=== PATIENT | female | born 1945 | race American Indian/Alaskan Native ===

== ENCOUNTER 2016-07-09 07:06 | Outpatient (CLI) | payer MEDICARE ==
--- NOTE | 2016-07-09 08:47 | Mammography Report ---
BILATERAL MAMMOGRAM: FINDINGS: The breasts are almost entirely fat (<25% glandular). No mass, distortion, suspicious calcification, or skin change is seen. There are no significant changes when compared to her prior examination in June 2015. CAD was utilized. IMPRESSION: Negative mammogram. There is no mammographic evidence of malignancy. RECOMMENDATION: Follow-up per ACS guidelines. BI-RADS CATEGORY: 1 = Negative ACR BI-RADS MAMMOGRAPHIC CODES: 0 = Needs additional imaging evaluation; 1 = Negative; 2 = Benign; 3 = Probably benign; 4 = Suspicious; 5 = Malignant; 6 = Known biopsy-proven malignancy COMMENT: 1. Dense breast tissue, i.e., adenosis, fibrocystic changes, etc., may obscure an underlying neoplasm. 2. Approximately 10% of cancers are not detected with mammography. 3. A negative mammography report should not delay biopsy if a clinically suspicious mass is present. COMMENT: Patient follow-up letters are generated in [employer].
== END 2016-07-09 07:07 | disposition home or self-care (01) ==
LOC: MAMMO 07:06
PROVIDERS: ATTEND Family Medicine
DX: Z12.31 Encounter for screening mammogram for malignant neoplasm of breast (principal)
CPT/HCPCS: 77067; G0202

== ENCOUNTER 2017-05-09 20:45 | Emergency (ER) | payer MEDICARE ==
[2017-05-09] MEDS ORDERED: TYLENOL PO ONE (21:35)
[2017-05-09] MEDS ORDERED: TYLENOL ONE (21:36)
--- NOTE | 2017-05-10 01:18 | Emergency Department Report ---
HPI - General Chief Complaint: Upper Respiratory Infection Time Seen by Provider: 05/10/17 00:13 - HPI HPI: Patient reports that she's been having sore throat, fever and chills, nonproductive cough, runny nose and fever since Tuesday which was 05-06-2017. She says she has a history of diabetes hypertension bronchitis and asthma and she takes nebulizer and inhaler. She doesn't report any wheezing but reports that she has coughing and wheezing with bronchitis and asthma flareup. Denies any known exposure to influenza. Generalized body ache is 7 out of 10. She says she was sick before and she got over it and that it started again on Tuesday. Denies any abdominal or back pain. Denies any urinary burning frequency or urgency. Denies any nausea or vomiting. Patient is a primary care physician. Pain is achy and she says she uses [id number] medication with little relief. ED Past Medical Hx - Past Medical History Previous Medical History?: Yes Hx Hypertension: Yes Hx Diabetes: Yes - Surgical History Past Surgical History?: Yes Hx Appendectomy: Yes Additional Surgical History: tubal ligation - Family History Family history: hypertension - Social History Smoking Status: Never Smoker Substance Use Type: Alcohol - Medications Home Medications: Home Medications Medication Instructions Recorded Confirmed Last Taken Type Acetaminophen [Acetaminophen TAB] 500 mg PO Q6HR PRN #12 tablet 05/10/17 Unknown Rx Amoxicillin/K Clav Tab [Augmentin 1 tab PO Q12HR 10 Days #20 tab 05/10/17 Unknown Rx 875 mg] Cetirizine HCl [ZyrTEC] 10 mg PO QDAY #10 capsule 05/10/17 Unknown Rx Fluticasone [Flonase] 1 spray NS QDAY #1 bottle 05/10/17 Unknown Rx guaiFENesin/CODEINE [Robitussin AC] 5 ml PO Q8H PRN #75 oral.liqd 05/10/17 Unknown Rx predniSONE [Deltasone] 50 mg PO QDAY 3 Days #3 tab 05/10/17 Unknown Rx ED Review of Systems ROS: Stated complaint: FLU SYMPTOMS Other details as noted in HPI Comment: All other systems reviewed and negative Constitutional: chills, fever, malaise Eyes: denies: eye pain, eye discharge ENT: throat pain, congestion. denies: ear pain, dental pain, hearing loss Respiratory: cough. denies: orthopnea, shortness of breath, SOB with exertion, SOB at rest, stridor, wheezing Cardiovascular: denies: chest pain, palpitations, dyspnea on exertion, orthopnea , edema, syncope, paroxysmal nocturnal dyspnea Gastrointestinal: denies: abdominal pain, nausea, vomiting, diarrhea, constipation, hematemesis, melena, hematochezia Genitourinary: denies: urgency, dysuria, frequency, hematuria, discharge, abnormal menses, dyspareunia Musculoskeletal: myalgia. denies: back pain, joint swelling, arthralgia Skin: denies: rash Neurological: denies: headache, numbness, paresthesias, confusion, abnormal gait , vertigo Physical Exam - Physical Exam Vital Signs: Vital Signs 05/09/17 21:31 Temperature 100.4 F H Pulse Rate 78 Respiratory 18 Rate Blood Pressure 140/70 O2 Sat by Pulse 96 Oximetry Vital Signs 05/09/17 05/10/17 21:31 01:39 Temperature 100.4 F H Pulse Rate 78 Pulse Rate [ 86 Anterior] Respiratory 18 Rate Respiratory 20 Rate [Anterior] Blood Pressure 140/70 O2 Sat by Pulse 96 Oximetry Vital Signs 05/09/17 05/10/17 05/10/17 21:31 01:39 01:50 Temperature 100.4 F H Pulse Rate 78 Pulse Rate [ 86 91 H Anterior] Respiratory 18 Rate Respiratory 20 20 Rate [Anterior] Blood Pressure 140/70 Blood Pressure [Right] O2 Sat by Pulse 96 Oximetry 05/10/17 04:53 Temperature 98.7 F Pulse Rate 71 Pulse Rate [ Anterior] Respiratory 18 Rate Respiratory Rate [Anterior] Blood Pressure Blood Pressure 115/67 [Right] O2 Sat by Pulse 99 Oximetry General: This is a 72-year-old female well-nourished well-developed and nontoxic in appearance Physical Exam: Head: Normocephalic, atraumatic, no abrasion, no bruising and no contusion. Eyes: Biateral pupils equal and reactive to light, bilateral EOM intact.. Bilateral conjunctival and sclera without injection, normal accommodation. No nystagmus Mouth: Moist, no pharyngeal exudate or erythema. No peritonsillar abscesses. Uvula is midline and oral airways patent. Ears: Bilateral TM congested without erythema. Bilateral EAC without any redness swelling or drainage. No mastoid bone tenderness Nose: Bilateral nasal turbinates congested with erythema and clear drainage. Maxillary and frontal sinuses non- tender to palpate. Neck: Supple, No Cervical adenopathy, full range of motion and no C-spine tenderness. No swelling or tracheal deviation normal reflexes Cardiovascular: S1, S2. Regular rate and rhythm. No murmur. Capillary refill is less then 3 seconds. Lungs: Scattered wheeze into the lung nog, no rhonchi or rales. No use of accessory muscle No chest wall tenderness. No chest contusion. No bruising to chest. Dry cough MSK: Strength 5/5 in all extremities. No joint deformity or crepitus. Normal inspection. Full range of motion to all extremities. No laceration, abrasion or ecchymotic area noted. Abdomen: Non-tender to palpate in all quadrants, no guarding or rebound tenderness, positive bowel sounds in all quadrants. No CVA tenderness. No hernia, bruit or mass. No rigidity or distention. Extremities: No clubbing, cyanosis or edema. +2 pulses. No neurovascular compromise Skin: Clean, dry and intact. No rash or lesions. Neurological: GCS at 15, Pt is alert and oriented 3 speech is clear period. Bilateral hand [employer] strong and equal. Normal gait. Negative Romberg and no pronator drift. Normal Reflexes. No motor or sensory deficit Back: No vertebral tenderness, no paraspinal tenderness. TAmbulates without any difficulties. Psych: Normal mood and behavior regular rate and ED Course Vital Signs 05/09/17 21:31 Temperature 100.4 F H Pulse Rate 78 Respiratory 18 Rate Blood Pressure 140/70 O2 Sat by Pulse 96 Oximetry Vital Signs 05/09/17 05/10/17 21:31 01:39 Temperature 100.4 F H Pulse Rate 78 Pulse Rate [ 86 Anterior] Respiratory 18 Rate Respiratory 20 Rate [Anterior] Blood Pressure 140/70 O2 Sat by Pulse 96 Oximetry Vital Signs 05/09/17 05/10/17 05/10/17 21:31 01:39 01:50 Temperature 100.4 F H Pulse Rate 78 Pulse Rate [ 86 91 H Anterior] Respiratory 18 Rate Respiratory 20 20 Rate [Anterior] Blood Pressure 140/70 Blood Pressure [Right] O2 Sat by Pulse 96 Oximetry 05/10/17 04:53 Temperature 98.7 F Pulse Rate 71 Pulse Rate [ Anterior] Respiratory 18 Rate Respiratory Rate [Anterior] Blood Pressure Blood Pressure 115/67 [Right] O2 Sat by Pulse 99 Oximetry - Reevaluation(s) Reevaluation #1: 05/10/17 04:43 Patient given Tylenol 650 mg by mouth for bodyaches and fever and DuoNeb one nebulizer for cough and wheezing. Abdomen reevaluation lung sounds are clear. Patient able to tolerate oral liquids 2 cups of ice water without any nausea or vomiting. ED Medical Decision Making - Lab Data Influenza A and B- Rapid strep test is negative - Radiology Data Radiology results: report reviewed Chest x-ray reveals no acute cardiopulmonary processes - Medical Decision Making ED course: PT complaining of flulike symptoms and has been worsening over the last 3 days. She says she went to her primary care physician. Patient has a history of bronchitis and asthma but reported in fever and chills with sore throat. She is having generalized aching. Physical findings for nasal congestion and with erythema, bilateral TM congested. She has dry cough with scattered wheezes throughout lung ngo. Patient was given 1 amp nebulizer 1 , Tylenol 650 mg pain and fever. Vital signs are better and temperature is better. Patient states that she felt better after nebulizer treatment. Her lungs sounds better after treatment upon examination. Chest x-ray reveals no acute cardiopulmonary findings, influenza A and B- and strep is negative. This was communicated to patient and she was understanding I discussed treatment plan with her and need to follow up with her primary care physician. Patient was orally hydrated emergency room and tolerated well without any nausea or vomiting. Patient discharged home a prescription for Augmentin, guaifenesin with codeine, Tylenol 500 mg when necessary for fever and/or pain, Zyrtec, Flonase and prednisone for 3 days she is diabetic. She is to follow-up with her primary care physician in 2 days. Critical care attestation.: If time is entered above; I have spent that time in minutes in the direct care of this critically ill patient, excluding procedure time. ED Disposition Clinical Impression: Upper respiratory infection with cough and congestion, Fever in adult Acute bronchitis Qualifiers: Bronchitis organism: unspecified organism Qualified Code(s): J20.9 - Acute bronchitis, unspecified Pharyngitis Qualifiers: Pharyngitis/tonsillitis etiology: unspecified etiology Qualified Code(s): J02.9 - Acute pharyngitis, unspecified Disposition: DC-01 TO HOME OR SELFCARE Is pt being admited?: No Does the pt Need Aspirin: No Condition: Stable Instructions: Fever in Adults (ED), Upper Respiratory Infection (ED), Acute Bronchitis (ED), Acute Cough (ED) Additional Instructions: Please increase her fluid intake Take your nebulizer and inhaler treatments every 6 hours for 2 days and then as needed Take cough medicine at bedtime and please do not drive or operate heavy machinery while taking this medication as this medication causes drowsiness Take antibiotic for acute bronchitis which is recurrent Take Tylenol for generalized achy in and/or fever Follow-up the primary care physician in 2 days Prescriptions: Acetaminophen [Acetaminophen TAB] 500 mg PO Q6HR PRN #12 tablet PRN Reason: Pain/Fever Amoxicillin/K Clav Tab [Augmentin 875 mg] 1 tab PO Q12HR 10 Days #20 tab Cetirizine HCl [ZyrTEC] 10 mg PO QDAY #10 capsule Fluticasone [Flonase] 1 spray NS QDAY #1 bottle guaiFENesin/CODEINE [Robitussin AC] 5 ml PO Q8H PRN #75 oral.liqd PRN Reason: Cough predniSONE [Deltasone] 50 mg PO QDAY 3 Days #3 tab Referrals: PRIMARY CAREMD [Primary Care Provider] - 05/12/17 [facility] [Outside] - 05/12/17 Forms: Accompanied Note, Work/School Release Form(ED)
[2017-05-10] MEDS ORDERED: DUONEB *Not for PRN Use IH ONE (01:19)
--- NOTE | 2017-05-10 01:45 | XRay Report ---
FINAL REPORT EXAM: XR CHEST ROUTINE 2V HISTORY: cough, fever TECHNIQUE: Three views of the chest were submitted. FINDINGS: Heart size and mediastinum appear normal. There are no acute infiltrates or congestion. There is minimal scarring/atelectasis in left lung base. Pleural fluid is not seen. The skeletal structures reveal disc degeneration in the thoracic spine. IMPRESSION: Minimal scarring/atelectasis in left lung base. No acute infiltrates or congestion.
[2017-05-10 04:54] VITALS: BP 115/67
== END 2017-05-10 05:00 | disposition home or self-care (01) ==
LOC: ED 20:45
DX: J06.9 Acute upper respiratory infection, unspecified (principal); J20.9 Acute bronchitis, unspecified; I10 Essential (primary) hypertension; E11.9 Type 2 diabetes mellitus without complications
CPT/HCPCS: 71046; 87400; 87430; 94640; 99284

== ENCOUNTER 2017-12-19 06:52 | Outpatient (CLI) | payer MEDICARE ==
--- NOTE | 2017-12-19 09:07 | Mammography Report ---
BILATERAL DIGITAL SCREENING MAMMOGRAM with CAD: 12/19/17 06:52:00 CLINICAL: Routine screening. COMPARISON:07/09/16 FINDINGS: The breasts are almost entirely fatty. No new mass, architectural distortion or suspicious calcifications. IMPRESSION: No mammographic evidence of malignancy. BI-RADS CATEGORY: 2 -- Benign RECOMMENDATION: Routine mammographic screening in one year. COMMENT: Patient follow-up letters are generated by our [employer] application.
== END 2017-12-19 06:53 | disposition home or self-care (01) ==
LOC: MAMMO 06:52
PROVIDERS: ATTEND Family Medicine
DX: Z12.31 Encounter for screening mammogram for malignant neoplasm of breast (principal); I10 Essential (primary) hypertension; Z90.49 Acquired absence of other specified parts of digestive tract
CPT/HCPCS: 77067

== ENCOUNTER 2019-01-04 06:50 | Outpatient (CLI) | payer MEDICARE ==
--- NOTE | 2019-01-04 11:40 | Mammography Report ---
DIGITAL SCREENING MAMMOGRAM WITH CAD, 01/04/2019 INDICATION: Routine screening mammography. TECHNIQUE: Digital bilateral 2D mammography was obtained in the craniocaudal and mediolateral obliq ue projections. This examination was interpreted with the benefit of Computer-Aided Detection analysi s. COMPARISON: 12/19/2017 FINDINGS: Breast Density: The breasts are almost entirely fatty. There is no evidence of dominant mass, suspicious calcifications or architectural distortion in eithe r breast. A few scattered right benign calcifications. IMPRESSION: No mammographic evidence of malignancy. Follow up recommendation: Routine yearly BI-RADS Category 2: Benign. A "normal" or negative report should not discourage follow up or biopsy of a clinically significant f inding. A written summary of these findings will be mailed to the patient. The patient will be entered into a mammography reporting system which will generate a reminder letter for the patient's next appointmen t at the appropriate interval. The [employer] recommends yearly mammograms starting at age 40 and continuing as l eulalio as a woman is in good health. Breast MRI is recommended for women with an approximate 20-25% or greater lifetime risk of breast cancer, including women with a strong family history of breast or ova dino cancer or who have been treated for Hodgkin's disease. Signer Name: Good Martinez MD Signed: 01/04/2019 11:35 AM Workstation Name: [id number]
== END 2019-01-04 06:51 | disposition home or self-care (01) ==
LOC: MAMMO 06:50
PROVIDERS: ATTEND Family Medicine
DX: Z12.31 Encounter for screening mammogram for malignant neoplasm of breast (principal); I10 Essential (primary) hypertension
CPT/HCPCS: 77067

== ENCOUNTER 2020-02-18 11:05 | Outpatient (CLI) | payer MEDICARE ==
--- NOTE | 2020-02-18 17:10 | Mammography Report ---
DIGITAL SCREENING MAMMOGRAM WITH CAD, 02/18/2020 CLINICAL INFORMATION / INDICATION: Routine screening mammography. ROUTINE TECHNIQUE: Digital bilateral 2D mammography was obtained in the craniocaudal and mediolateral obliqu e projections. This examination was interpreted with the benefit of Computer-Aided Detection analysis . COMPARISON: Prior mammograms 01/04/2019 and 12/19/2017 FINDINGS: Breast Density: There are scattered areas of fibroglandular density. No dominant mass, suspicious calcifications, or architectural distortion in either breast. There has been no significant change compared with the prior examinations. IMPRESSION: No mammographic evidence of malignancy. Follow up recommendation: Routine yearly BI-RADS Category 1: Negative. A "normal" or negative report should not discourage follow up or biopsy of a clinically significant f inding. A written summary of these findings will be mailed to the patient. The patient will be entered into a mammography reporting system which will generate a reminder letter for the patient's next appointmen t at the appropriate interval. The [employer] recommends yearly mammograms starting at age 40 and continuing as l eulalio as a woman is in good health. Breast MRI is recommended for women with an approximate 20-25% or greater lifetime risk of breast cancer, including women with a strong family history of breast or ova dino cancer or who have been treated for Hodgkin's disease. Signer Name: Juanita Lynch MD Signed: 02/18/2020 5:06 PM Workstation Name: [id number]
== END 2020-02-18 11:06 | disposition home or self-care (01) ==
LOC: MAMMO 11:05
PROVIDERS: ATTEND Family Medicine
DX: Z12.31 Encounter for screening mammogram for malignant neoplasm of breast (principal)
CPT/HCPCS: 77067

== ENCOUNTER 2021-03-13 10:31 | Outpatient (CLI) | payer MEDICARE | END 2021-03-13 10:32 | disposition home or self-care (01) | LOC: MAMMO 10:31 | PROVIDERS: ATTEND Family Medicine | DX: Z12.31 Encounter for screening mammogram for malignant neoplasm of breast (principal) | CPT/HCPCS: 77067 ==